=== PATIENT | female | born 1950 | race Caucasian/White ===

== ENCOUNTER → 2021-10-25 14:31 | Outpatient (BNVA) | payer MEDICARE, MEDICAID, SELFPAY | PROVIDERS: PCP Family Medicine; Visit Provider Specialist | DX: R41.3 Other amnesia (principal); F41.9 Anxiety disorder, unspecified; G25.0 Essential tremor; R26.9 Unspecified abnormalities of gait and mobility; Z87.891 Personal history of nicotine dependence | CPT/HCPCS: 96116; 99214 ==